=== PATIENT | female | born 1975 | race Asian ===

== ENCOUNTER → 2025-03-09 11:23 | Outpatient (CLI) | payer OTHER, SELFPAY ==
--- NOTE | 2025-03-09 11:24 | DI.RAD.S_ITS ---
PROCEDURE: XR CHEST 2V INDICATIONS: r/o TB TECHNIQUE: 2 views of the chest were acquired. COMPARISON: None. FINDINGS: Surgical changes and devices: None. Lungs and pleura: Lungs are clear. No pleural effusions or pneumothorax. Mediastinum: Mediastinal contours are normal. Heart size is normal. Bones and chest wall: No suspicious bony abnormalities. Soft tissues appear unremarkable. IMPRESSION: No acute cardiopulmonary abnormality is seen. Approved by: Isma Montero M.D. on 03/09/2025 at 16:52
== END ==
PROVIDERS: PCP Family Medicine; Referring Provider Family Medicine; Visit Provider Family Medicine
DX: Z02.1 Encounter for pre-employment examination (principal)
CPT/HCPCS: 71046